=== PATIENT | female | born 1965 | race Caucasian/White ===

== ENCOUNTER → 2016-09-06 | Outpatient (CLI) | payer OTHER, BC ==
--- NOTE | 2016-09-06 10:18 | DIAGNOSTIC IMAGING REPORT ---
RIGHT WRIST 4 VIEWS CLINICAL HISTORY: Right wrist pain. Recent fall. FINDINGS: 4 views of the right wrist are obtained. No prior studies are available for comparison at the time of dictation. The skeletal structures are well mineralized. No fracture is seen. The joint spaces of the wrist appear maintained. Mild negative ulnar variance is suggested. The overlying soft tissues are within normal limits. IMPRESSION: No acute bony abnormality is seen in the right wrist. Electronically signed by: Eliseo Frankel M.D. 09/06/2016 10:17 AM Dictated Date/Time: 09/06/2016 10:16 AM
--- NOTE | 2016-09-06 10:20 | DIAGNOSTIC IMAGING REPORT ---
RIGHT HAND MIN 3 VIEWS ROUTINE CLINICAL HISTORY: Right hand and wrist pain following fall. COMPARISON: None FINDINGS: Alignment of the right hand is anatomic. No acute fracture is identified. Carpal bones are intact. IMPRESSION: No acute fracture or dislocation of the right hand. Electronically signed by: Joshua Orosco M.D. 09/06/2016 10:19 AM Dictated Date/Time: 09/06/2016 10:17 AM
== END | disposition home or self-care (01) ==
LOC: C.RAD1850 09:39
PROVIDERS: ATTEND Physician Assistant
DX: S60.211A Contusion of right wrist, initial encounter (principal); W19.XXXA Unspecified fall, initial encounter

== ENCOUNTER → 2016-09-08 | Outpatient (CLI) | payer BC ==
--- NOTE | 2016-09-08 15:22 | MAMMOGRAPHY REPORT ---
BILATERAL DIGITAL SCREENING MAMMOGRAM TOMOSYNTHESIS WITH CAD: 09/08/2016 CLINICAL HISTORY: Routine screening. TECHNIQUE: Breast tomosynthesis in addition to standard 2D mammography was performed. Current study was also evaluated with a Computer Aided Detection (CAD) system. COMPARISON: Comparison is made to exams dated: 09/08/2015 mammogram, 08/18/2014 mammogram, 07/28/2013 ma mmogram, 07/22/2012 mammogram, 07/14/2011 mammogram, and 07/12/2010 mammogram - [facility] er. BREAST COMPOSITION: There are scattered areas of fibroglandular density in both breasts. FINDINGS: No suspicious masses, calcifications, or areas of architectural distortion are noted in ei ther breast. There has been no significant interval change compared to prior exams. IMPRESSION: ACR BI-RADS CATEGORY 1: NEGATIVE There is no mammographic evidence of malignancy. A 1 year screening mammogram is recommended. The pa tient will receive written notification of the results. Approximately 10% of breast cancers are not detected with mammography. A negative mammographic report should not delay biopsy if a clinically suggestive mass is present. Kajal Rosenbaum M.D. /:09/08/2016 15:16:43 Disease Education Specialist: Henry ARRIOLA(Yenny)(M), [facility] letter sent: Normal 1/2 BI-RADS Code: ACR BI-RADS Category 1: Negative
== END | disposition home or self-care (01) ==
LOC: C.MAMM 11:02
PROVIDERS: ATTEND Obstetrics & Gynecology
DX: Z12.31 Encounter for screening mammogram for malignant neoplasm of breast (principal)

== ENCOUNTER → 2017-02-28 | Outpatient (CLI) | payer BC ==
--- NOTE | 2017-02-28 09:04 | DIAGNOSTIC IMAGING REPORT ---
LEFT WRIST 4 VIEWS HISTORY: Fall. L WRIST PAIN COMPARISON: None. FINDINGS: There is no fracture or dislocation. Mild soft tissue swelling. No radiopaque foreign bodies. IMPRESSION: No fracture or dislocation within the left wrist. Electronically signed by: Bonilla Garcia M.D. 02/28/2017 9:03 AM Dictated Date/Time: 02/28/2017 9:01 AM
== END | disposition home or self-care (01) ==
LOC: C.RAD1850 08:41
PROVIDERS: ATTEND Nurse Practitioner
DX: M25.532 Pain in left wrist (principal)